=== PATIENT | female | born 1990 | race American Indian/Alaskan Native ===

== ENCOUNTER 2021-09-01 19:08 | Emergency (ER) | payer SELFPAY ==
[2021-09-01 19:47] VITALS: BP 160/110
[2021-09-01] MEDS ORDERED: KETOROLAC 60 MG/2 ML INJ IM ONE (21:10)
[2021-09-01] MEDS ORDERED: dexAMETHasone 20 MG/5 ML VIAL IM ONE (21:10)
[2021-09-01 21:53] LABS: Basophils # (Auto) 0.1 K/mm3 (0.0-0.1); Basophils % (Auto) 0.7 % (0.0-1.8); Eosinophils # (Auto) 0.1 K/mm3 (0.0-0.4); Eosinophils % (Auto) 0.6 % (0.0-4.3); Hematocrit 34.6 % (30.3-42.9); Hemoglobin 11.5 gm/dl (10.1-14.3); Mean Corpuscular HGB Conc 33 % (30-34); Mean Corpuscular Volume 86 fl (79-97); Monocytes # (Auto) 0.9 K/mm3 (0.0-0.8); Monocytes % (Auto) 6.6 % (0.0-7.3); Platelet Count 428 K/mm3 (140-440); Red Blood Count 4.04 M/mm3 (3.65-5.03); Red Cell Distribution Width 15.1 % (13.2-15.2)
[2021-09-01 22:07] LABS: Alanine Aminotransferase 11 units/L (7-56); Albumin 3.8 g/dL (3.9-5); Blood Urea Nitrogen 7 mg/dL (7-17); Calcium 9.2 mg/dL (8.4-10.2); Hemolysis Index 4
[2021-09-01 22:10] LABS: Bacteria,Urine 1+ /HPF (Negative); Bilirubin,Urine NEG (Negative); Blood,Urine MOD (Negative); Color,Urine Straw (Yellow); Urobilinogen,Urine < 2.0 mg/dL (<2.0)
[2021-09-01 22:13] LABS: BUN/Creatinine Ratio 10
--- NOTE | 2021-09-01 22:56 | Emergency Department Report ---
ED Extremity Problem HPI - General Chief complaint: Pain General Stated complaint: LUPUS Source: patient, EMS Mode of arrival: Stretcher Limitations: No Limitations - History of Present Illness Initial comments: Patient is a 30 year-old -[place] female with a history of SLE and chronic pain who presents to the ED with complaint of acute exacerbation of her chronic pain characterized bilateral lower extremity pain, tingling and joint pains as well as hip pains for the last 1 week, worse in the last 3 days. Patient states that she decided come to the ED for evaluation to forestall any worsening flareup of her chronic lupus pain. Patient states that she has not followed up with her boat repairer in the last 4 months as she did not on the last appointment which was set up 4 months ago. Patient however states that she has been taking her regular medications including prednisone 20 mg daily. Patient denies dizziness, syncope, fall, dysuria, urinary frequency and urgency, fever, chills, cough, chest pain or shortness of breath, abdominal pain, lightheadedness, diarrhea or headache. MD Complaint: extremity pain (Bilateral lower extremity pain), joint paint (bilateral hip pain) -: Sudden, week(s) (1) Location: bilateral lower extremity History of Same: No -: Yes arthralgia (bilaterally) Severity scale (0 -10): 7 Quality: aching, sharp Consistency: constant Improves with: nothing Worsens with: weight bearing, walking, palpation Associated Symptoms: denies other symptoms, arthralgias (Bilateral lower extremity ain). denies: chest pain, shortness of breath, fever, myalgias, rash - Related Data Previous Rx's Medication Instructions Recorded Last Taken Type Baclofen 20 mg PO Q12H PRN #24 tab 09/01/21 Unknown Rx Ibuprofen [Motrin] 800 mg PO Q8HR PRN #30 tablet 09/01/21 Unknown Rx metroNIDAZOLE [Flagyl] 500 mg PO Q12HR #14 tab 09/01/21 Unknown Rx traMADoL [Ultram] 50 mg PO Q6HR PRN #12 tablet 09/01/21 Unknown Rx Allergies Allergy/AdvReac Type Severity Reaction Status Date / Time No Known Allergies Allergy Unverified 09/01/21 19:47 ED Review of Systems ROS: Stated complaint: LUPUS Other details as noted in HPI Constitutional: denies: chills, fever Eyes: denies: eye pain, eye discharge, vision change ENT: denies: ear pain, throat pain Respiratory: denies: cough, shortness of breath, wheezing Cardiovascular: denies: chest pain, palpitations Endocrine: no symptoms reported Gastrointestinal: denies: abdominal pain, nausea, vomiting, diarrhea Genitourinary: denies: urgency, dysuria, discharge Musculoskeletal: arthralgia (Bilateral lower extremity). denies: back pain, joint swelling Skin: denies: rash, lesions Neurological: denies: headache, weakness, paresthesias Psychiatric: denies: anxiety, depression Hematological/Lymphatic: denies: easy bleeding, easy bruising ED Past Medical Hx - Past Medical History Previous Medical History?: Yes Additional medical history: Lupus - Surgical History Past Surgical History?: No - Social History Smoking Status: Current Every Day Smoker Substance Use Type: None - Medications Home Medications: Home Medications Medication Instructions Recorded Confirmed Last Taken Type Baclofen 20 mg PO Q12H PRN #24 tab 09/01/21 Unknown Rx Ibuprofen [Motrin] 800 mg PO Q8HR PRN #30 tablet 09/01/21 Unknown Rx metroNIDAZOLE [Flagyl] 500 mg PO Q12HR #14 tab 09/01/21 Unknown Rx traMADoL [Ultram] 50 mg PO Q6HR PRN #12 tablet 09/01/21 Unknown Rx ED Physical Exam - General Limitations: No Limitations General appearance: alert, in no apparent distress - Head Head exam: Present: atraumatic, normocephalic, normal inspection - Eye Eye exam: Present: normal appearance, PERRL, EOMI Pupils: Present: normal accommodation - ENT ENT exam: Present: normal exam, normal orophraynx, mucous membranes moist, TM's normal bilaterally, normal external ear exam - Neck Neck exam: Present: normal inspection, full ROM. Absent: tenderness - Respiratory Respiratory exam: Present: normal lung sounds bilaterally. Absent: respiratory distress, wheezes, rales, rhonchi, chest wall tenderness, accessory muscle use, decreased breath sounds, prolonged expiratory - Cardiovascular Cardiovascular Exam: Present: regular rate, normal rhythm, normal heart sounds. Absent: systolic murmur, diastolic murmur, rubs, gallop - GI/Abdominal GI/Abdominal exam: Present: soft, normal bowel sounds. Absent: tenderness, guarding, rebound, hyperactive bowel sounds, hypoactive bowel sounds - Extremities Exam Extremities exam: Present: normal inspection, full ROM, tenderness (Bilateral leg pain, hip pain), normal capillary refill. Absent: pedal edema, joint swelling, calf tenderness - Back Exam Back exam: Present: normal inspection, full ROM, tenderness, muscle spasm, paraspinal tenderness. Absent: CVA tenderness (L), vertebral tenderness - Neurological Exam Neurological exam: Present: alert, oriented X3, CN II-XII intact, normal gait, r eflexes normal - Psychiatric Psychiatric exam: Present: normal affect, normal mood - Skin Skin exam: Present: warm, dry, intact, normal color. Absent: rash ED Course Vital Signs 09/01/21 19:42 Temperature 98 F Pulse Rate 96 H Respiratory 18 Rate Blood Pressure 160/110 O2 Sat by Pulse 96 Oximetry ED Medical Decision Making - Lab Data Result diagrams: 09/01/21 21:24 09/01/21 21:24 - Medical Decision Making This is a 30 year-old -[place] female with a history of SLE and chronic pain who presents to the ED with complaint of acute exacerbation of her chronic pain characterized bilateral lower extremity pain, tingling and joint pains as well as hip pains for the last 1 week, worse in the last 3 days. Patient states that she decided come to the ED for evaluation to forestall any worsening flareup of her chronic lupus pain. Patient states that she has not followed up with her boat repairer in the last 4 months as she did not on the last appointment which was set up 4 months ago. Patient however states that she has been taking her regular medications including prednisone 20 mg daily. In the ED, patient is alert and oriented x3 and is not in any distress. Patient was treated in the ED for pain. Lab test results were reviewed and are all nonactionable except for leukocytosis of 13,500 and a wet prep test which was positive for Gardnerella vaginalis. Patient was therefore discharged home on medications and advised to follow-up with her primary care physician as well as her boat repairer in the next 7 to 10 days. Patient is advised to return to the ED immediately if symptoms get worse. - Differential Diagnosis Muscle spasm; UTI; BV; chronic pain; Critical care attestation.: If time is entered above; I have spent that time in minutes in the direct care of this critically ill patient, excluding procedure time. ED Disposition Clinical Impression: Chronic pain syndrome, Spasm of muscle of lower back, Bacterial vaginosis Disposition: 01 HOME / SELF CARE / HOMELESS Is pt being admited?: No Does the pt Need Aspirin: No Condition: Stable Instructions: Bacterial Vaginosis (ED), Muscle Cramps and Spasms, [id number], Bacterial Vaginosis, [id number], Musculoskeletal Pain, Chronic Pain, Adult Additional Instructions: All lab test results were reviewed and are all nonactionable. Wet prep test was positive for bacterial vaginosis. Therefore take medications as advised, drink plenty of fluids and follow-up with your primary care physician in 7 to 10 days for reevaluation. Return to the ED immediately if symptoms get worse with Prescriptions: Baclofen 20 mg PO Q12H PRN #24 tab PRN Reason: Muscle Spasm metroNIDAZOLE [Flagyl] 500 mg PO Q12HR #14 tab Ibuprofen [Motrin] 800 mg PO Q8HR PRN #30 tablet PRN Reason: Pain , Severe (7-10) traMADoL [Ultram] 50 mg PO Q6HR PRN #12 tablet PRN Reason: Pain Referrals: [facility] [Provider Group] - 3-5 Days Forms: STI Treatment and Prevention Time of Disposition: 23:00 Print Language: CROATIAN
== END 2021-09-02 07:00 | disposition home or self-care (01) ==
LOC: ED 19:08
DX: G89.4 Chronic pain syndrome (principal); M54.50 Low back pain, unspecified; M62.830 Muscle spasm of back; N76.0 Acute vaginitis; B96.89 Other specified bacterial agents as the cause of diseases classified elsewhere; F17.200 Nicotine dependence, unspecified, uncomplicated; Z79.899 Other long term (current) drug therapy
CPT/HCPCS: 36415; 80053; 81001; 84703; 85025; 87210; 96372; 99284; J1100; J1885; 99283